=== PATIENT | male | born 1975 | race Caucasian/White ===

== ENCOUNTER 2018-12-12 15:28 | Emergency (ER) | payer BC ==
[2018-12-12 15:54] VITALS: BP 123/72
--- NOTE | 2018-12-12 16:08 | UC ---
Eye Complaint HPI - HPI Summary HPI Summary: 43 yo man with hx of lymphoma, comes today with concern of right upper lid droop which he noticed about 5 days ago. No associated diplopia, blurring, loss of visual field. Photo which he brings shows some upper lid swelling. Possible TIA about 5 years ago when he had the sense of a right facial droop. He cannot recall the investigations done at that time. Was advised by his PCP to begin use of a baby aspirin daily. He does not know his cholesterol, blood pressure is normal. Last eye check with Dr. Garcia about 6 months ago. - History of Current Complaint Chief Complaint: UCEye Stated Complaint: R EYE COMP Time Seen by Provider: 12/12/18 15:40 Hx Obtained From: Patient Onset/Duration: Gradual Onset, Lasting Days - 5 Timing: Intermittent Episode Lasting - at times seems worse than others Severity Initially: Mild Severity Currently: Mild Pain Intensity: 0 Location of Injury: Eye Lid (upper) Aggravating Factor(s): Nothing Alleviating Factor(s): Nothing Associated Signs And Symptoms: Negative: Photophobia, Drainage (Clear), Drainage (Purulent), Vision Impairment Bilateral, Vision Impairment Right - Risk Factors Penetrating Injury Risk Factor: Negative Globe Rupture Risk Factors: Negative Acute Glaucoma Risk Factors: Negative - Allergies/Home Medications Allergies/Adverse Reactions: Allergies Allergy/AdvReac Type Severity Reaction Status Date / Time morphine Allergy Unknown Itching Verified 12/12/18 15:39 poison ifrah Allergy Rash Uncoded 12/12/18 15:39 Home Medications: Home Medications Aspirin 81 mg CHEW TAB* [Aspirin Low Dose TAB*] 81 mg PO DAILY 12/12/18 [ History Confirmed 12/12/18] PMH/Surg Hx/FS Hx/Imm Hx Previously Healthy: Yes Cancer History: Other - lymphoma, treated 2003. - Surgical History Surgical History: Yes Surgery Procedure, Year, and Place: moles, lymphoma non hodgkins; left ankle fxs with pins, plate 2002 - Family History Known Family History: Positive: Cardiac Disease - father had NE in his 50's, Diabetes - mother - Social History Occupation: Employed Full-time Lives: With Family Alcohol Use: Rare Substance Use Type: None Smoking Status (MU): Never Smoked Tobacco - Immunization History Most Recent Influenza Vaccination: December 2012 Review of Systems All Other Systems Reviewed And Are Negative: Yes Constitutional: Positive: Negative - feels well, no fatigue or recent weight change. Skin: Positive: Negative Eyes: Positive: Other - right lid droop ENT: Positive: Negative Respiratory: Positive: Negative Gastrointestinal: Positive: Negative Motor: Positive: Negative Neurovascular: Positive: Other - no dysarthria, changes in swallowing, motor changes. Musculoskeletal: Positive: Negative Physical Exam Triage Information Reviewed: Yes Appearance: Well-Appearing, No Pain Distress, Well-Nourished Vital Signs: Initial Vital Signs Temp 98.3 F 12/12/18 15:41 Pulse 101 12/12/18 15:41 Resp 18 12/12/18 15:41 BP 123/72 12/12/18 15:41 Pulse Ox 98 12/12/18 15:41 Eye Exam: Other - Eye lids symmetrical, without a true drop in lid over the pupil. Upper lids with some mechanical change. Visual clements normal by confrontation. Normal EOM without nystagmus. Normal pupillary response. Eyes: Positive: Conjunctiva Clear ENT: Positive: Normal ENT inspection, Pharynx normal Neck: Positive: Supple, Nontender, No Lymphadenopathy Respiratory: Positive: Lungs clear, Normal breath sounds Cardiovascular: Positive: RRR, No Murmur Musculoskeletal Exam: Normal Neurological Exam: Other - CNII-XII normal. Neurological: Positive: Alert, Muscle Tone Normal Psychological Exam: Normal - mildly anxious Skin Exam: Normal Eye Complaint Course/Dx - Course Course Of Treatment: evaluation by Dr. Cross and [employer] advised. Suggested meeting to consider differential such as myasthenia gramis or thyrod dysfunction. No evidence of acute neurological event. 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 I suggest follow up with Dr. Garcia to evaluate your eyes and assess the lids for ptosis. Further evaluation such as screening for thyroid dysfunction or myasthenia gravis should be considered by Dr. Garcia or your primary care physician. - Billing Disposition and Condition Condition: GOOD Disposition: Home
== END 2018-12-12 16:34 | disposition home or self-care (01) ==
LOC: UCCORT 15:28
DX: H02.401 Unspecified ptosis of right eyelid (principal); Z79.82 Long term (current) use of aspirin; Z88.5 Allergy status to narcotic agent; Z91.09 Other allergy status, other than to drugs and biological substances
CPT/HCPCS: 99211; G0463